=== PATIENT | female | born 1975 | race Caucasian/White ===

== ENCOUNTER 2020-01-30 08:28 | Outpatient (CLI) | payer OTHER, SELFPAY ==
[2020-01-30 10:02] LABS: Hematocrit 37.1 % (37.0-47.0); Hemoglobin 11.2 g/dL (12.0-15.0); Mean Corpuscular HGB Conc 30.2 g/dl (32-36); Mean Corpuscular Hemoglobin 23.7 pg (26-34); Mean Corpuscular Volume 78.6 fl (80-100); Mean Platelet Volume 9.9 fl (7.4-10.4); Platelet Count Result 459 k/mm3 (150-375); Red Blood Count 4.72 M/mm3 (4.2-5.4); White Blood Count 7.9 K/mm3 (4.5-10.0)
[2020-01-30 10:19] LABS: Cholesterol 164 mg/dL (0-200); HDL Direct 43 mg/dL; Triglycerides 118 mg/dL (<150)
[2020-01-30 10:27] LABS: Hemoglobin A1C 5.3 % (<5.7)
[2020-01-30 10:30] LABS: LDL Cholesterol Direct 95 mg/dL
[2020-01-30 10:49] LABS: Free T4 Free Thyroxine 0.88 ng/mL (0.78-2.19); Vitamin D 25 Hydroxy 19.4 ng/mL
[2020-02-03 13:53] LABS: Prolactin 13.2 ng/mL (***)
== END 2020-01-30 08:29 | disposition home or self-care (01) ==
PROVIDERS: PCP Family Medicine; Visit Provider Nurse Practitioner
DX: N92.0 Excessive and frequent menstruation with regular cycle (principal)
CPT/HCPCS: 36415; 80061; 82306; 83036; 84146; 84439; 84443; 85027

== ENCOUNTER 2022-08-18 11:26 | Outpatient (CLI) | payer OTHER, SELFPAY ==
[2022-08-18 12:02] LABS: Hematocrit 35.1 % (37.0-47.0); Hemoglobin 10.4 g/dL (12.0-15.0); Mean Corpuscular HGB Conc 29.6 g/dl (32-36); Mean Corpuscular Hemoglobin 23.1 pg (26-34); Platelet Count Result 411 k/mm3 (150-375); Red Cell Distribution Width 15.9 % (11.5-14.5); White Blood Count 8.8 K/mm3 (4.5-10.0)
[2022-08-18 12:44] LABS: Free T4 Free Thyroxine 1.02 ng/mL (0.78-2.19)
[2022-08-21 04:53] LABS: Prolactin 13.7 ng/mL (***)
== END 2022-08-18 11:27 | disposition home or self-care (01) ==
PROVIDERS: PCP Family Medicine; Visit Provider Nurse Practitioner
DX: E55.9 Vitamin D deficiency, unspecified (principal)
CPT/HCPCS: 36415; 82306; 84146; 84439; 84443; 85027

== ENCOUNTER 2022-12-30 13:13 | Outpatient (CLI) | payer OTHER, SELFPAY ==
[2022-12-30 15:44] LABS: Hemoglobin 9.8 g/dL (12.0-15.0)
== END 2022-12-30 13:14 | disposition home or self-care (01) ==
PROVIDERS: Anesthesiology; PCP Family Medicine; Visit Provider Obstetrics & Gynecology Gynecology
DX: D64.9 Anemia, unspecified (principal)
CPT/HCPCS: 36415; 85014; 85018

== ENCOUNTER 2023-01-09 00:57 | Day surgery (SDC) | payer OTHER, SELFPAY ==
[2022-12-28 14:38] VITALS: BMI 39.9
--- NOTE | 2022-12-28 14:47 | PC.NURSE ---
Report to the Outpatient Waiting Room, entrance under the green pavilion located off [facility], at time 8:15 on date 01/09/23. Planned Procedure Time: 10:15. Time changes happen often and if your time is changed the preop area will call you the afternoon before. - You and your visitor will be asked to self-screen and do not enter if you have any COVID symptoms. - A mask is optional within the hospital at this time. Patients may have clear liquids (water, carbonated beverages, clear teas, apple juice) until 3 hours prior to surgery with a maximum of 20 ounces. - No food from midnight until time of surgery Take the following medications with a SIP of water the morning of surgery: NONE DO NOT STOP ANY OF YOUR OTHER PRESCRIPTION MEDICATIONS PRIOR TO SURGERY ?EXCEPT THE FOLLOWING Medications to discontinue per physician: N/A Date to take last dose: N/A Please no make-up, nail maldivian, hairspray, perfume, deodorant, or body powder the day of surgery. No jewelry (including any body piercings) or valuables the day of surgery, leave them at home. Please take a shower or bath the night before, or the morning of, surgery with an antibacterial soap. Wear comfortable, loose fitting clothing. - Jewelry must be removed prior to entering the operating room. Rings and piercings that are not removed may be cut off. - The hospital will not accept responsibility for valuables. - Please leave all valuables, including medications, at home the day of surgery. If you are going home after surgery, a licensed local company refrigerated truck driver must drive you home. - NO public transportation without another adult if you receive anesthesia. - We recommend that an adult stay with you for 24 hours following discharge. - We also recommend that you do not drive, make important decision, drink alcoholic beverages, or take any drugs that were not prescribed by your health care provider for at least 24 hours after your discharge time. Follow any additional instructions given to you from your surgeon. If you or anyone in your household have experienced Covid symptoms in the past week, please notify your surgeon or the nurse liaison at the phone number below for possible testing. Telephone instructions given to PT - JOHNNY RILEY and asked if any additional questions and then verbalized understanding. Patient advised to call surgeon office or pre surgery nurse liaison [phone] if any additional questions.
--- NOTE | 2023-01-09 07:43 | WPDHPUPDATE1 ---
History and Physical Update Update Date/Time: 01/09/23 07:43 History and Physical has been reviewed, including an updated exam of the patient. There are NO changes in the patient's condition. Risks, benefits, and alternatives have been discussed and questions answered. Patient agrees to proceed with procedure.
--- NOTE | 2023-01-09 07:43 | PM.HPGS ---
History of Present Illness History of Present Illness Consent: Risks, benefits, and alternatives have been discussed and questions answered. Patient agrees to proceed with procedure. Chief complaint: Menorrhagia Narrative: Zoraida Fall is a 47 year old female longstanding abnormal periods. Patient was recommended to have a hysteroscopy as long ago as 2015. Patient has scheduled and rescheduled and canceled multiple times secondary to finances. Risks of infection, bleeding perforation, and possible pathology (polyps, fibroids, hyperplasia, cancer) have been reviewed on multiple occasions. Patient voices understanding and agrees to proceed. Review of Systems Review of Systems: not repeated day of surgery; patient states no changes in status PMFSH Past Medical History Medical History (Updated 01/09/23 @ 07:49 by Ginger Hood MD) Hypothyroid (normal spontaneous vaginal delivery) X2 Surgical History Surgical History (Updated 01/09/23 @ 07:47 by Ginger Hood MD) History of bilateral tubal ligation via Adiana procedure with HSG verification of closure History of breast biopsy Benign 26 Family History Family History (Updated 09/11/15 @ 23:19 by DOCTOR UNKNOWN) Mother Hypertension Grandparent Family history of malignant neoplasm of cervix Family history of malignant neoplasm of breast Family history of coronary artery disease Diabetes mellitus Other Family history of malignant neoplasm Social History Social History Smoking status: Never smoker Alcohol intake: current Alcohol use details: RARE Substance use: never Substance use type: does not use Living arrangements: with family Spiritual care concerns: No Meds Home Medications and Allergies Home Medications Medication Instructions Recorded Confirmed Type ibuprofen 200 mg tablet 400 mg PO Q6H PRN Pain 12/28/22 12/28/22 History Allergies Allergy/AdvReac Type Severity Reaction Status Date / Time codeine Allergy Unknown Rash Verified 12/28/22 14:38 latex Allergy Unknown Hives / Unverified 12/28/22 14:38 Red Face Penicillins Allergy Unknown Rash Verified 12/28/22 14:38 Exam Const: General: healthy appearing and alert Orientation/consciousness: patient oriented x3 Resp: Effort & Inspection: normal respiratory effort Auscultation: clear to auscultation bilaterally Cardio: Rate: regular rate Rhythm: regular rhythm GI: GI Palp: Yes Soft to palpation, No Tenderness to palpation present (GI) and No Palpable mass present : External Female Exam: normal external appearance Speculum Exam - Vagina: normal appearance of the vagina and normal vaginal discharge Speculum Exam - Cervix: normal appearance of the cervix Bimanual exam- vagina & uterus: uterine size normal and consistency normal Bimanual Exam- Adnexa, other: normal adnexae and No adnexal tenderness Neuro: General: patient oriented x3 Assessment and Plan Assessment and plan (1) Menorrhagia: Code(s): N92.0 - Excessive and frequent menstruation with regular cycle Status: Acute Assessment and Plan: Plan to proceed with D&C hysteroscopy
[2023-01-09] MEDS: ACETAMINOPHEN 500 MG TABLET 1000 MG PO (08:21)
[2023-01-09] MEDS: LACTATED RINGERS 1,000 ML 30 ML IV CONT (08:40)
[2023-01-09 08:57] VITALS: BP 150/88; PULSE 91; RESP 16; TEMP 36.5; O2SAT 100
[2023-01-09 09:06] LABS: Glucose Point of Care 98 mg/dl (65-105)
--- NOTE | 2023-01-09 10:06 | P.PNAN_ITS ---
Anes - Initial Pre Proc Eval Procedure: Operation Date: 01/09/23 10:15 Proposed Procedures p Hysteroscopy Dilation and Curettage - Ginger Hood MD Date/Time: 01/09/23 10:06 Surgeon: Ginger Hood MD Pre Op Diagnosis: Menorrhagia Patient Data Age: 47 Gender: F Height: 1.65 m Weight: 97.4 kg Last Vital Signs Temp 97.7 F 01/09/23 08:57 Pulse 91 01/09/23 08:57 Resp 16 01/09/23 08:57 BP 150/88 H 01/09/23 08:57 Pulse Ox 100 01/09/23 08:57 O2 Del Method Room Air 01/09/23 08:57 Allergies Allergy/AdvReac Type Severity Reaction Status Date / Time codeine Allergy Unknown Rash Verified 01/09/23 08:21 latex Allergy Unknown Hives / Verified 01/09/23 08:21 Red Face Penicillins Allergy Unknown Rash Verified 01/09/23 08:21 Home Medications Medication Instructions Recorded Confirmed Type ibuprofen 200 mg tablet 400 mg PO Q6H PRN Pain 12/28/22 12/28/22 History Laboratory Tests 01/09/23 09:04 POC Capillary Glucose 98 mg/dl (65-105) Patient hx anesthesia problems: other (has problems with hypotension with anesthesia) Family hx anesthesia problems: none Results Review: All pre-operative results and documents have been reviewed as part of the pre- operative evaluation. [facility] Past Medical History Medical History (Updated 01/09/23 @ 07:49 by Ginger Hood MD) Hypothyroid (normal spontaneous vaginal delivery) X2 Surgical History Surgical History (Updated 01/09/23 @ 07:47 by Ginger Hood MD) History of bilateral tubal ligation via Adiana procedure with HSG verification of closure History of breast biopsy Benign 26 Family History Family History (Updated 09/11/15 @ 23:19 by DOCTOR UNKNOWN) Mother Hypertension Grandparent Family history of malignant neoplasm of cervix Family history of malignant neoplasm of breast Family history of coronary artery disease Diabetes mellitus Other Family history of malignant neoplasm Social History Social History Smoking status: Never smoker Alcohol intake: current Alcohol use details: RARE Substance use: never Substance use type: does not use Living arrangements: with family Spiritual care concerns: No Anes - Eval Final PreProcedure Day of Procedure 01/09/23 10:06 Patient weight: obese Heart: regular rate and rhythm Lungs: clear to auscultation Airway: Mallampati scale class II Neurological: alert and oriented Last oral intake: >/= 8 hours ASA classification: III Emergent: no Anesthetic plan: proceed Anesthesia type and monitoring: general GIVS and standard monitoring Results Review: All pre-operative results and documents have been reviewed as part of the pre- operative evaluation. Informed Consent: The patient's anesthetic plan and its attendant risks and benefits were discussed with the patient/family/POA. Questions were solicited and answers provided to the satisfaction of the patient/family/POA.
--- NOTE | 2023-01-09 10:54 | P.OP_ITS ---
Procedure Note - Detailed Date of Procedure 01/09/23 Pre-op Diagnosis Menorrhagia Post-op Diagnosis Same Procedure Performed D&C hysteroscopy Surgeon Ginger Hood MD Anesthesia MAC Findings Uterus sounds to 9cm and appears grossly thickened consistent with secretory status Description of Procedure The patient is taken to the operating room and placed under anesthesia in the dorsal lithotomy position. She was prepped and draped in usual sterile fashion. [place] speculum was placed in the vagina and the cervix grasped on the anterior lip with a tenaculum. The uterus is sounded to 9cm. The diagnostic hysteroscope was placed and with no abnormalities noted it is removed. The 00 curette is used to sharply curette the endometrium until a good uterine cry was noted in all areas. A significant amount of material was obtained consistent with the gross appearance. All instruments were then removed. The patient is awakened from anesthesia and taken to recovery in stable condition. Sponge, needle, and instrument counts are correct per the OR staff. Estimated Blood Loss 5 Drains No Packing No Pathology Yes (Endometrial curettings) Complications No immediate complications Condition Stable Disposition PACU
[2023-01-09 10:56] VITALS: BP 141/83; PULSE 77; RESP 14; O2SAT 100
[2023-01-09 11:25] VITALS: BP 154/89; PULSE 64; RESP 14
[2023-01-09 11:55] VITALS: BP 161/94; PULSE 74; RESP 14
== END 2023-01-09 12:06 | disposition home or self-care (01) ==
PROVIDERS: PCP Family Medicine; Visit Provider Obstetrics & Gynecology Gynecology
PROC: 0U5B8ZZ Destruction of Endometrium, Via Natural or Artificial Opening Endoscopic (ICD-10-PCS; CPT 58563; principal; 2023-01-09 10:15)
DX: N92.0 Excessive and frequent menstruation with regular cycle (principal); N85.8 Other specified noninflammatory disorders of uterus; E03.9 Hypothyroidism, unspecified; E66.9 Obesity, unspecified; Z68.35 Body mass index [BMI] 35.0-35.9, adult; Z80.3 Family history of malignant neoplasm of breast; Z80.49 Family history of malignant neoplasm of other genital organs; Z82.49 Family history of ischemic heart disease and other diseases of the circulatory system
CPT/HCPCS: 58558; 82948; 88305; A9270; J1100; J2250; J2405; J2704; J3010; J7120